=== PATIENT | male | born 1955 | race Hispanic/Latino ===

== ENCOUNTER 2023-10-03 21:37 | Inpatient (IN) | payer SELFPAY ==
[2023-10-03] MEDS ORDERED: Morphine 4 MG/ML VIAL SLOW IVP PRN (21:46)
[2023-10-03] MEDS ORDERED: Morphine 2 MG/ML VIAL SLOW IVP PRN (21:46)
[2023-10-03] MEDS ORDERED: Ondansetron PF 4 MG/2 ML Vial IVP PRN (21:46)
[2023-10-03] MEDS ORDERED: Rib Fracture Protocol IV SCH (22:00)
[2023-10-03 22:51] LABS: Hematocrit 37.5 % (42.0-52.0); Hemoglobin 12.9 g/dL (14.0-18.0)
[2023-10-04 00:37] VITALS: BMI 29.2
[2023-10-04] MEDS: Ipratropium/Albuterol 3 ML NEB NEB SCH (00:50)
[2023-10-04] MEDS: Acetaminophen 650 MG Suppository PR SCH (01:01)
[2023-10-04] MEDS: Ketorolac Tromethamine 30 MG (1 mL) VIAL IVP SCH (01:02)
[2023-10-04] MEDS: Lactated Ringer's 1,000 ML IV SCH (01:03)
[2023-10-04] MEDS: Acetaminophen 500 MG TAB PO SCH (05:17)
[2023-10-04 06:36] LABS: Hematocrit 39.1 % (42.0-52.0); Hemoglobin 12.9 g/dL (14.0-18.0)
[2023-10-04 06:37] LABS: #Monocytes 0.9 thou/uL (0.11-0.59); #Neutrophils 5.3 thou/uL (1.40-6.50); %Basophils 0.2 % (0.0-1.0); %Eosinophils 0.5 % (0.0-10.0); %Lymphocytes 26.8 % (21.0-51.0); %Neutrophils 62.3 % (42.0-75.0); Hematocrit 38.1 % (42.0-52.0); Hemoglobin 12.7 g/dL (14.0-18.0); Mean Corpuscular HGB CONC 33.3 g/dL (32.0-36.0); Mean Corpuscular Hemoglobin 31.4 pg (27.0-31.0); Mean Corpuscular Volume 94.3 fl (78.0-98.0); Platelet Count 164 10x3/uL (130-400); RBC Distribution Width 13.9 % (11.5-14.5); Red Blood Cell (RBC) Count 4.04 mill/uL (4.70-6.10); White Blood Cell (WBC) Count 8.5 10x3/uL (4.8-10.8)
[2023-10-04 06:54] LABS: ALT (SGPT) 34 U/L (8-55); AST (SGOT) 25 U/L (5-34); Albumin 4.1 g/dL (3.4-4.8); Alkaline Phosphatase 76 U/L (40-110); Anion Gap 11 mmol/L (10-20); BUN (Urea Nitrogen) 17 mg/dL (8.4-25.7); Bilirubin, Total 0.6 mg/dL (0.2-1.2); Calc. Creatinine Clearance 109 mL/min (70-130); Calcium 8.5 mg/dL (7.8-10.44); Carbon Dioxide 23 mmol/L (23-31); Chloride 107 mmol/L (98-107); Estimated GFR 99; Globulin 2.5 g/dL (2.4-3.5); Glucose 134 mg/dL (80-115); Potassium 4.2 mmol/L (3.5-5.1); Protein, Total 6.6 g/dL (5.8-8.1); Sodium 137 mmol/L (136-145)
[2023-10-04] MEDS: Famotidine 20 MG TAB PO SCH (08:44)
[2023-10-04] MEDS: Folic Acid 1 MG TAB PO SCH (08:44)
[2023-10-04] MEDS: Oxazepam 10 MG CAP PO SCH (08:45)
[2023-10-04] MEDS: Thiamine 100 MG TAB PO SCH (08:45)
[2023-10-04] MEDS: Gabapentin 300 MG CAP PO SCH (08:45)
[2023-10-04] MEDS: Multivit, Therapeutic 1 TAB PO SCH (08:45)
[2023-10-04 08:56] LABS: INR-International Normal Ratio 1.2; PTT 31.8 sec (22.9-36.1)
[2023-10-04 10:46] LABS: Hematocrit 35.1 % (42.0-52.0); Hemoglobin 11.8 g/dL (14.0-18.0)
[2023-10-04 16:02] LABS: Hematocrit 34.8 % (42.0-52.0); Hemoglobin 11.8 g/dL (14.0-18.0)
[2023-10-04 22:52] LABS: Hematocrit 34.5 % (42.0-52.0); Hemoglobin 11.4 g/dL (14.0-18.0)
[2023-10-05 05:41] LABS: Hematocrit 35.9 % (42.0-52.0); Hemoglobin 11.9 g/dL (14.0-18.0)
[2023-10-05] MEDS: Oxazepam 10 MG CAP PO SCH (08:48)
[2023-10-05] MEDS: Losartan 25 MG TAB PO SCH (08:49)
[2023-10-05] MEDS: Polyethylene Glycol 3350 17 GM Packet PO SCH (08:52)
[2023-10-05] MEDS: traMADol HCl 50 MG TAB PO PRN (11:21)
[2023-10-05] MEDS: traMADol HCl 50 MG TAB PO SCH (13:50)
[2023-10-06 05:20] LABS: #Eosinphils 0.2 thou/uL (0.0-0.7); #Monocytes 0.9 thou/uL (0.11-0.59); #Neutrophils 5.5 thou/uL (1.40-6.50); %Basophils 0.2 % (0.0-1.0); %Eosinophils 2.4 % (0.0-10.0); %Lymphocytes 30.5 % (21.0-51.0); %Monocytes 9.1 % (0.0-10.0); %Neutrophils 57.5 % (42.0-75.0); Hematocrit 37.4 % (42.0-52.0); Hemoglobin 12.2 g/dL (14.0-18.0); Mean Corpuscular HGB CONC 32.6 g/dL (32.0-36.0); Mean Corpuscular Hemoglobin 31.6 pg (27.0-31.0); Mean Corpuscular Volume 96.9 fl (78.0-98.0); Mean Platelet Volume 9.2 fL (7.4-10.4); Platelet Count 154 10x3/uL (130-400); RBC Distribution Width 14.3 % (11.5-14.5); Red Blood Cell (RBC) Count 3.86 mill/uL (4.70-6.10); White Blood Cell (WBC) Count 9.6 10x3/uL (4.8-10.8)
[2023-10-06] MEDS: Ondansetron ODT 4 MG TAB PO PRN (08:11)
[2023-10-06] MEDS: Lactulose 20 GM (30 mL) UDCUP PO SCH (14:29)
[2023-10-06] MEDS: Senokot S 8.6-50 MG TAB PO SCH (20:53)
[2023-10-06] MEDS: Oxazepam 10 MG CAP PO SCH (20:54)
[2023-10-07 05:48] LABS: Hematocrit 35.8 % (42.0-52.0); Hemoglobin 11.6 g/dL (14.0-18.0)
[2023-10-07] MEDS: Polyethylene Glycol 3350 17 GM Packet PO SCH (08:28)
[2023-10-07] MEDS: FLU VACC QS2023(65UP)/MF59C/PF 60 MCG/0.5 ML SYRINGE IM ONE (08:29)
[2023-10-08 04:11] LABS: Hematocrit 36.4 % (42.0-52.0); Hemoglobin 11.8 g/dL (14.0-18.0)
[2023-10-08 11:44] VITALS: BP 162/74; TEMP 98.7
== END 2023-10-08 14:58 | disposition home or self-care (01) | DRG 183 ==
LOC: ERS 21:37 → IMCU/EMU 10-04 00:09 → SURG A 10-05 20:04
PROVIDERS: ADMIT Specialist; ATTEND Specialist
DX: S22.42XA Multiple fractures of ribs, left side, initial encounter for closed fracture (principal); S36.032A Major laceration of spleen, initial encounter; F10.90 Alcohol use, unspecified, uncomplicated; W55.12XA Struck by horse, initial encounter
CPT/HCPCS: 36415; 36416; 71045; 80053; 85014; 85018; 85025; 85610; 85730; 86850; 86900; 86901; 94640; G0390; J1885; J7120; J7620; Q0162